=== PATIENT | female | born 2000 | race African-American/Black ===

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

== ENCOUNTER 2022-12-29 20:31 | Emergency (ER) | payer MEDICAID ==
[~2022-12-29] VITALS: Ht 160 cm; Wt 37.0 kg
[2022-12-29 21:24] LABS: HEMATOCRIT. 41.8 % (36.0-48.0); HEMOGLOBIN. 13.8 g/dL (12.0-16.0); MEAN CORPUSCULAR HEMOGLOBIN 32.2 pg (28.0-32.0); MEAN CORPUSCULAR VOLUME 97.5 fL (81.0-99.0); MEAN PLATELET VOLUME 7.2 fl (7.4-10.4); PLATELET 291 x1000/uL (130-400); RED BLOOD CELL COUNT 4.29 mill/uL (4.2-5.4); RED CELL DISTRIBUTION WIDTH 12.7 % (11.6-14.6)
[2022-12-29 21:31] LABS: CHLORIDE 107 mEq/L (98-107)
[2022-12-29 22:13] LABS: PLATELET ESTIMATE NORMAL
[2022-12-29 22:22] LABS: CLARITY URINE CLEAR (CLEAR); COLOR URINE YELLOW (YELLOW); KETONES URINE 4+ (NEGATIVE); LEUKOCYTE ESTERASE URINE NEGATIVE (NEGATIVE); NITRITE URINE NEGATIVE (NEGATIVE); OCCULT BLOOD URINE 2+ (NEGATIVE); PROTEIN URINE TRACE (NEGATIVE); SPECIFIC GRAVITY URINE 1.019 (1.005-1.030)
[2022-12-29] MEDS ORDERED: KETOROLAC 30MG/ML VIAL IV STA (22:28)
[2022-12-29] MEDS ORDERED: ONDANSETRON HCL 4MG/2ML INJ IV STA (22:28)
[2022-12-29] MEDS ORDERED: SODIUM CHLORIDE 0.9% 1,000 ML IV ONE ×2 (22:30→23:45)
[2022-12-29] MEDS ORDERED: CEFTRIAXONE 1GM PREMIX 50 ML IV ONE (23:45)
[2022-12-29 23:49] LABS: HCG SCREEN NEGATIVE
[2022-12-29 23:54] LABS: CREATINE KINASE 116 IU/L (26-192)
[2022-12-30] MEDS ORDERED: AZIT500T8 MT (00:28)
[2022-12-30] MEDS ORDERED: AMOX-494 MT (00:30)
[2022-12-30 01:33] VITALS: BP 110/78
== END 2022-12-30 01:35 | disposition home or self-care (01) ==
LOC: ER 20:31
DX: J18.9 Pneumonia, unspecified organism (principal); I49.9 Cardiac arrhythmia, unspecified
CPT/HCPCS: 36415; 71045; 80053; 81003; 81025; 82550; 84703; 85025; 93005; 96361; 96365; 96375; 99285; J0696; J1885; J7030; J2405